=== PATIENT | female | born 1950 | race Caucasian/White ===

== ENCOUNTER → 2023-08-09 08:17 | Outpatient (REF) | payer OTHER, SELFPAY | LOC: HWRCS 08:17 | PROVIDERS: ATTENDING PHYSICIAN Nuclear Medicine Nuclear Cardiology; FAMILY PHYSICIAN Nurse Practitioner Adult Health | DX: I48.19 Other persistent atrial fibrillation (principal); R06.02 Shortness of breath; I63.40 Cerebral infarction due to embolism of unspecified cerebral artery; E78.2 Mixed hyperlipidemia; I10 Essential (primary) hypertension | CPT/HCPCS: 93306 ==